=== PATIENT | male | born 2005 | race Caucasian/White ===

== ENCOUNTER 2023-06-19 12:49 | Observation (INO) ==
[2023-06-19] MEDS: SODIUM CHLORIDE 0.9% 1,000 ML IV SCH (13:35)
[2023-06-19] MEDS: ONDANSETRON INJ 2 MG/ML 2 ML VIAL IV STA ×2 (13:35→16:12)
[2023-06-19 13:47] LABS: Appearance Urine Clear (Clear); Bacteria Urine Automated None Seen (None Seen); Bilirubin Urine Negative (Negative); Blood Urine Negative (Negative); Cast Urine Automated 0-2 /lpf (0-2); Color Urine Yellow; Epithelial Cell Urine Auto 0-2 /hpf (0-2); Glucose Urine UA Negative (Negative); Ketones Urine 2+ (Negative); Leukocyte Esterase Urine Negative (Negative); Nitrite Urine Negative (Negative); Protein Urine Trace (Negative); RBC Urine Automated 0-2 /hpf (0-2); Specific Gravity Urine 1.026 (1.000-1.030); Urobilinogen Urine Negative (Negative); WBC Urine Automated 0-5 /hpf (0-5); pH Urine 8.5 (4.5-7.5)
[2023-06-19 14:02] LABS: Basophils # (auto) 0.03 K/uL (0.00-0.20); Basophils % (auto) 0.2 %; Eosinophils # (auto) 0.02 K/uL (0.00-0.50); Eosinophils % (auto) 0.2 %; Hematocrit (blood only) 45.3 % (42.0-52.0); Hemoglobin 16.3 g/dl (14.0-18.0); Immature Granulocytes # (auto) 0.04 K/uL (0.01-0.20); Immature Granulocytes % (auto) 0.3 %; Lymphocytes # (auto) 1.57 K/uL (1.20-3.40); Lymphocytes % (auto) 12.5 %; Mean Corpuscular Hemoglobin 30.2 pg (25.0-34.0); Mean Corpuscular Volume 83.9 fL (80.0-100.0); Mean Platelet Volume 9.9 fL (9.4-12.4); Monocytes # (auto) 0.33 K/uL (0.11-0.59); Monocytes % (auto) 2.6 %; Neutrophils # (auto) 10.54 K/uL (1.40-6.50); Neutrophils % (auto) 84.2 %; Platelet Count 329 K/uL (130-400); RDW Coefficient of Variation 13.3 % (11.5-14.5); RDW Standard Deviation 40.9 fL (36.4-46.3); White Blood Count 12.53 K/ul (4.8-10.8)
[2023-06-19 14:02] LABS: Amphetamines+Metham, Urine Neg (Neg); Barbiturates, Urine Neg (Neg); Benzodiazepine, Urine Neg (Neg); Cocaine, Urine Neg (Neg); MDMA (Ecstacy), Urine Neg (Neg); Marijuana, Urine Pos (Neg); Methadone, Urine Neg (Neg); Opiate, Urine Neg (Neg); Phencyclidine, Urine Neg (Neg)
[2023-06-19 14:08] LABS: Albumin Globulin Ratio 1.7 (0.9-2); Calcium 9.8 mg/dl (8.6-10.3); Creatinine Clr Calc Pharmacy 130.4 ml/min; Est GFR (African American) 113.9 ml/min; Est GFR (Non-African American) 98.3 ml/min; Globulin 2.9 gm/dl (2.5-4.0); Potassium 3.8 mmol/L (3.5-5.1); Total Protein 7.9 gm/dl (6.0-8.3)
--- NOTE | 2023-06-19 14:26 | Emergency Department Note ---
Impression & Plan Acute nausea with nonbilious vomiting, Leukocytosis, Acute dehydration, Cyclical vomiting syndrome ED Provider Note NAME: SHAGUFTA MARES AGE: 18 SEX: Male INFORMANT: Patient ED PROVIDER(S): Mario Butler MD CHIEF COMPLAINT: Vomiting PLAN: Disposition: Outpatient prescription management: none Referral: MEDICAL DECISION MAKING: Patient presented with a history of cyclic vomiting syndrome. He states this feels similar and has had this for upwards of 18 years. IV was established. He was hydrated with 2 L of normal saline. He was given IV Zofran. Patient was then given a dose of IV Phenergan.He has a mild leukocytosis on CBC. Patient was reassessed and had some additional vomiting. He was given another dose of IV Zofran. He was monitored. Patient then feeling somewhat better but then had additional vomiting. He was given a dose of IV Benadryl, IV Compazine, and IV Pepcid. This seemed to work well as he was much more relaxed, the nausea subsided and he was able to sleep. Discussed this with the father. We will monitor him for another 30 to 45 minutes and then reassess his ability to tolerate p.o. If he is unable to do so he will require admission to the hospital. I gave my usual and customary discussion regarding this issue. Care/management discussed with: none Triage Nursing notes: reviewed and agree them. Vital Signs: reviewed and remarkable for no significant abnormalities Additional History obtained from: Patient's father. He notes that the patient is followed at [facility]. He has had problems such as this on a frequent basis dating back to the age of 1 Chronic Medical/Social Conditions affecting care: Cyclic vomiting syndrome Prior/ Outside/ External records reviewed: none Differential Diagnosis: Etiologies such as acute exacerbation of cyclic vomiting syndrome, gastroenteritis, food borne illness, infections, appendicitis, diverticulitis, inflammatory bowel disease, GI bleed, biliary pathology, CHS, as well as others were entertained. Diagnostics, independently interpreted by me: ECG: none Cardiac Monitoring: Cardiac monitoring ordered by me: The patient was placed on continuous cardiac monitoring and observed. It revealed a normal sinus rhythm at 74 beats per minute without ectopy or evidence of dysrhythmia. Medical decision rules: none Imaging studies: Deferred HPI: 18 year old Male arrives for evaluation of vomiting. This started yesterday and is persisting. The patient also notes the following associated symptoms, nausea and feeling dehydrated. The patient has found no relieving factors. Current pain is rated as 0/10. Patient has history of cyclic vomiting syndrome since age of 1. This feels just like his prior episodes. He had about 3 other episodes this year. Father is present and helps with history. Patient does note he drank about 4 beers yesterday but nothing excessive. Patient also denies any drug use. Pt denies LOC, headache, fevers, chills, diaphoresis, visual changes, neck pain, chest pain, breathing difficulties, abdominal pain, back pain, melena, hematochezia, urinary symptoms, numbness, weakness, lymphadenopathy, rash, or other complaints. . PAST MEDICAL HISTORY: See Below, cyclic vomiting syndrome PAST SURGICAL HISTORY: See Below, SOCIAL HISTORY: See Below, [employer] student GRETHEL MEDICATIONS: See Below ALLERGIES: See Below VITALS: See Below PHYSICAL EXAMINATION: GENERAL: Awake, alert, uncomfortable-appearing, in mild distress. Actively dry heaving. HENT: Normocephalic, atraumatic. Oropharynx unremarkable. EYES: Normal conjunctiva. Sclera non-icteric. NECK: Inspection normal. Non-tender. Supple. No nuchal rigidity. FROM. No masses. RESPIRATORY: Clear to auscultation. No wheezes. No rales. Normal respiratory effort. CARDIAC: Normal rate. Normal rhythm. No murmurs. No rubs. Extremities warm and well perfused. Pulses equal. No JVD. GI: Soft, non-distended. No tenderness to palpation. No rebound or guarding. No masses. RECTAL: Deferred. MUSCULOSKELETAL: Atraumatic. Chest examination reveals no tenderness. The back is symmetrical on inspection without obvious abnormality. There is no CVA tenderness to palpation. No joint edema. LOWER EXTREMITIES: Calves are equal size bilaterally and non-tender. No edema. No discoloration. NEURO: Normal sensorium. No sensory or motor deficits noted. SKIN: No rash or jaundice noted. PROCEDURES: none CRITICAL CARE: none OBSERVATION NOTE: none Past Med/Surg History Medical History Cyclic vomiting syndrome Surgical History Hx of tonsillectomy Social History Smoking Status: Never smoker Preferred Language: Burmese Feels Safe at Home: Yes Allergies Allergies Allergy/AdvReac Type Severity Reaction Status Date / Time No Known Allergies Allergy Verified 06/19/23 15:02 Home Meds Home Medications Medication Instructions Recorded Confirmed amitriptyline-chlordiazepoxide 0 tab PO HS 06/19/23 06/19/23 12.5 mg-5 mg tablet escitalopram oxalate 10 mg tablet 0 mg PO HS 06/19/23 06/19/23 (Lexapro) Results & Data (ED) Vital Signs Vital Signs - 24 hr 06/19/23 12:52 06/19/23 14:20 06/19/23 14:20 Temperature 36.9 C Temperature Source Temporal Artery Scan Pulse Rate 74 Pulse Rate [Apical] 65 Pulse Rhythm Regular Pulse Strength Normal Respiratory Rate 20 20 Respiratory Effort / Characteristics Non-Labored Non-Labored Respiratory Depth Normal Normal Respiratory Pattern Regular Blood Pressure 136/86 Blood Pressure [Right Arm] 142/70 H Blood Pressure Mean 102 Blood Pressure Mean [Right Arm] 94 Pulse Oximetry 100 100 100 Oxygen Delivery Method Room Air Room Air Room Air Sepsis Recent Fever Within 48 Hours No Sepsis New/Unexplained Change in Mental Status No Sepsis Action Taken by Nursing No Action Required 06/19/23 16:43 Temperature Temperature Source Pulse Rate 52 L Pulse Rate [Apical] Pulse Rhythm Pulse Strength Respiratory Rate 17 Respiratory Effort / Characteristics Respiratory Depth Respiratory Pattern Blood Pressure 146/88 H Blood Pressure [Right Arm] Blood Pressure Mean 107 Blood Pressure Mean [Right Arm] Pulse Oximetry 98 Oxygen Delivery Method Room Air Sepsis Recent Fever Within 48 Hours Sepsis New/Unexplained Change in Mental Status Sepsis Action Taken by Nursing Laboratory Data 06/19/23 13:22 06/19/23 13:22 Lab Results 06/19/23 06/19/23 Range/Units 13:22 13:30 WBC 12.53 H (4.8-10.8) K/ul RBC 5.40 (4.70-6.10) M/uL Hgb 16.3 (14.0-18.0) g/dl Hct 45.3 (42.0-52.0) % MCV 83.9 (80.0-100.0) fL MCH 30.2 (25.0-34.0) pg MCHC 36.0 (32.0-36.0) g/dL RDW Std Deviation 40.9 (36.4-46.3) fL RDW Coeff of Jaylan 13.3 (11.5-14.5) % Plt Count 329 (130-400) K/uL MPV 9.9 (9.4-12.4) fL Immature Gran % (Auto) 0.3 % Neut % (Auto) 84.2 % Lymph % (Auto) 12.5 % Coal % (Auto) 2.6 % Eos % (Auto) 0.2 % Baso % (Auto) 0.2 % Neut # (Auto) 10.54 H (1.40-6.50) K/uL Lymph # (Auto) 1.57 (1.20-3.40) K/uL Coal # (Auto) 0.33 (0.11-0.59) K/uL Eos # (Auto) 0.02 (0.00-0.50) K/uL Baso # (Auto) 0.03 (0.00-0.20) K/uL Immature Gran # (Auto) 0.04 (0.01-0.20) K/uL Sodium 138 (136-145) mmol/L Potassium 3.8 (3.5-5.1) mmol/L Chloride 106 (98-107) mmol/L Carbon Dioxide 21 (21-32) mmol/L Anion Gap 11 (3-11) BUN 14 (6-23) mg/dl Creatinine 1.08 (0.6-1.4) mg/dl Est Cr Clr Drug Dosing 130.4 ml/min Est GFR ( Amer) 113.9 ml/min Est GFR (Non-Af Amer) 98.3 ml/min BUN/Creatinine Ratio 13.0 (10-20) Glucose 140 H (70-99(Fasting)) mg/dl Calcium 9.8 (8.6-10.3) mg/dl Total Bilirubin 1.0 (0.2-1.0) mg/dl AST 33 (13-39) U/L ALT 20 (7-52) U/L Alkaline Phosphatase 83 (34-104) U/L Total Protein 7.9 (6.0-8.3) gm/dl Albumin 5.0 (3.4-5.0) gm/dl Globulin 2.9 (2.5-4.0) gm/dl Albumin/Globulin Ratio 1.7 (0.9-2) Lipase 14 (11-82) U/L Urine Color Yellow Urine Appearance Clear (Clear) Urine pH 8.5 H (4.5-7.5) Ur Specific [place] 1.026 (1.000-1.030) Urine Protein Trace H (Negative) Urine Glucose (UA) Negative (Negative) Urine Ketones 2+ H (Negative) Urine Blood Negative (Negative) Urine Nitrite Negative (Negative) Urine Bilirubin Negative (Negative) Urine Urobilinogen Negative (Negative) Ur Leukocyte Esterase Negative (Negative) Urine WBC (Auto) 0-5 (0-5) /hpf Urine RBC (Auto) 0-2 (0-2) /hpf U Hyaline Cast (Auto) 0-2 (0-2) /lpf U Epithel Cells (Auto) 0-2 (0-2) /hpf Urine Bacteria (Auto) None Seen (None Seen) Urine Opiates Screen Neg (Neg) Ur Methadone, Qual Neg (Neg) Urine Barbiturates Neg (Neg) Ur Phencyclidine (PCP) Neg (Neg) U Amphetamin/Meth Scrn Neg (Neg) MDMA (Ecstasy) Screen Neg (Neg) U Benzodiazepines Scrn Neg (Neg) Ur Cocaine Metabolite Neg (Neg) U Marijuana (THC) Screen Pos H (Neg) Administered Medications Sodium Chloride (Nss) 1,000 mls @ 999 mls/hr IV .Q1H1M ONE Stop: 06/19/23 18:05 Last Admin: 06/19/23 17:08 Dose: 999 mls/hr Documented By: LUKASZ Discontinued Medications Diphenhydramine HCl (Diphenhydramine 50 Mg/Ml Vial) 25 mg IV NOW STA Stop: 06/19/23 16:58 Last Admin: 06/19/23 17:04 Dose: 25 mg Documented By: LUKASZ Sodium Chloride (Nss) 1,000 mls @ 999 mls/hr IV .Q1H1M YOON Stop: 06/19/23 15:15 Last Infusion: 06/19/23 15:05 Dose: Infused Documented By: Admin: 06/19/23 14:10 Dose: 999 mls/hr Documented By: Infusion: 06/19/23 14:09 Dose: Infused Documented By: Admin: 06/19/23 13:35 Dose: 999 mls/hr Documented By: MIKE Promethazine HCl (Phenergan) 25 mg in 51 mls @ 204 mls/hr IV NOW STA Stop: 06/19/23 14:58 Last Infusion: 06/19/23 16:31 Dose: Infused Documented By: Admin: 06/19/23 15:03 Dose: 204 mls/hr Documented By: LUKASZ Prochlorperazine (Compazine) 1 mls @ 1 mls/min IV ONE ONE Stop: 06/19/23 16:58 Last Admin: 06/19/23 17:04 Dose: 1 mls/min Documented By: LUKASZ Famotidine (Pepcid 20mg Iv Push) 20 mg in 5 mls @ 2.5 mls/min IV NOW STA Stop: 06/19/23 16:59 Last Admin: 06/19/23 17:04 Dose: 2.5 mls/min Documented By: LUKASZ Ondansetron HCl (Ondansetron Inj 2 Mg/Ml 2 Ml Vial) 4 mg IV NOW STA Stop: 06/19/23 13:14 Last Admin: 06/19/23 13:35 Dose: 4 mg Documented By: MIKE Ondansetron HCl (Ondansetron Inj 2 Mg/Ml 2 Ml Vial) 4 mg IV NOW STA Stop: 06/19/23 16:03 Last Admin: 06/19/23 16:12 Dose: 4 mg Documented By: LUKASZ Discharge Plan Visit Data Chief Complaint: Vomiting Stated Complaint: VOMITING ED Provider: Mario Butler Discharge Problem: Acute nausea with nonbilious vomiting, Leukocytosis, Acute dehydration, Cyclical vomiting syndrome Patient Disposition: Home - Self-Care Discharge Instructions Activity Restrictions/Additional Instructions: VOMITING INSTRUCTIONS: DO NOT drive, drink alcohol, operate machinery, or perform dangerous activities today. You were given medications in the ER that can affect your ability to safely function or operate a vehicle. Zofran(odansetron) tablets 4mg: Take one and allow it to dissolve in your mouth every four to six hours as needed for nausea or vomiting. Acetaminophen(Tylenol) may be used for fever or pain. Use 1000mg every six hours as needed. Avoid using more than 3000mg in a 24 hour period. Rest and drink plenty of fluids as tolerated. Slow sips of water or sports drinks are recommended instead of large amounts all at once. Continue current medications. Once your stomach is settled start with a clear liquid diet (jello, soup broth, etc.) and then advance as tolerated. You should avoid full, heavy meals for about 24 hrs from the time your symptoms resolved. Return to the ER for persistent vomiting, fevers, abdominal pain, chest pains, difficulty breathing, black or bloody stools, worsening of your condition, or as needed. Follow up with your primary physician when you return home for a recheck of your current condition Forms Stand Alone Forms: [facility], Important Visit Information Prescriptions Prescriptions: No Action amitriptyline-chlordiazepoxide 12.5-5 mg Tablet 0 tab PO HS Rx Instructions: PT UNSURE OF STRENGTH, UNABLE TO VERIFY. escitalopram oxalate [Lexapro] 10 mg Tablet 0 mg PO HS Rx Instructions: PT UNSURE OF STRENGTH, UNABLE TO VERIFY. Referrals Referrals: [facility] [Primary Care Provider] -
[2023-06-19] MEDS: PROMETHAZINE 25 MG/51 ML BAG IV STA (15:03)
[2023-06-19] MEDS: FAMOTIDINE 20MG IV PUSH 20 MG/5 ML SYR IV STA (17:04)
[2023-06-19] MEDS: diphenhydrAMINE 50 MG/ML VIAL IV STA ×2 (17:04→20:09)
[2023-06-19] MEDS: PROCHLORPERAZINE 1 ML IV ONE (17:04)
[2023-06-19] MEDS: SODIUM CHLORIDE 0.9% 1,000 ML IV ONE (17:08)
--- NOTE | 2023-06-19 19:29 | Emergency Department Note ---
ED Visit Note The patient was taken in signout from Dr. Butler at the change of shift. Please see that note for details. The patient was pending reassessment after receiving multiple medications for cyclic vomiting syndrome. The patient had been just dosed with additional medications and was able to rest and go to sleep. He was to be reassessed an hour to see if he can tolerate oral intake. Unfortunately, I was informed by RN that he vomited subsequently. Per signout patient was to be admitted if continues to fail p.o. trial. I did reevaluate the patient and his abdomen was benign. The patient and his father at bedside agree with plan for admission. Additional medications including topical capsaicin, diphenhydramine and Reglan as well as maintenance IV fluids with lactated Ringers. Case was discussed with Dr. Carter, [facility] hospitalist, who will evaluate the patient for admission. .
[2023-06-19] MEDS: LACTATED RINGER'S 1,000 ML IV SCH (20:08)
[2023-06-19] MEDS: METOCLOPRAMIDE HCL INJ 5 MG/ML 2 ML VIAL IV ONE (20:08)
[2023-06-19] MEDS: CAPSAICIN CR 0.075% 60 GM TUBE EXT STA (20:12)
--- NOTE | 2023-06-19 20:45 | History & Physical Report ---
Date of Service June 19, 2023 Assessment & Plan (1) Cyclical vomiting syndrome: Plan: - History of cyclic vomiting syndrome- follows with [facility] GI - multiple admissions in the past - marijuana + on UDS, denies use in the past week - Zofran prn, Phenergan prn as pt states this is what has worked well for him in the past - could consider Decadron prior to Zofran if unable to break nausea cylce; pt declines that this time - S/p 3L IVF in the ED; continue LR @125ml/hr until PO intake improves - Diet- clears; advance as tolerated - On amitriptyline chlordiazepoxide and Lexapro- unable to tolerate PO currently, unsure of home dosing- f/u qAM to obtain home dosing - Will put order to obtain Mario Eliseo's records (2) Acute dehydration: Plan: - IVF as per above (3) Leukocytosis: Plan: - mild leukocytosis to 12; no signs of infection- afebrile and hemodynamically stable - likely reactive; continue to trend Plan Code: Full Diet: Clears; advance as tolerated VTE Prophylaxis: Ambulation, SCD, low risk History of Present Illness Primary Care Provider: [facility] 18 year old male with a past medical history of cyclic vomiting syndrome presenting with nausea, vomiting, dehydration. States that he has had cyclic vomiting syndrome since he was 1. Multiple episodes per month. Has not had an episode this bad in a number of years. From [place], follows with GI at [facility]. 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 Denies any other substance use. States that nausea/vomiting began last night and got worse thorough out the day today. Denies abdominal pain. Last BM this morning; denies diarrhea,. constipation, blood in stool. Emesis non- bloody/nonbilious. Poor PO intake through out the day today. Normally when he has episodes, Phenergan/Zofran work well for him. In the ED got multiple rounds of Phenergan, Zofran. Also trial of famotidine, Benadryl, Reglan. S/p 2L NSS. Allergies Allergy/AdvReac Type Severity Reaction Status Date / Time No Known Allergies Allergy Verified 06/19/23 15:02 Home Medications Medication Instructions Recorded Confirmed Type amitriptyline-chlordiazepoxide 0 tab PO HS 06/19/23 06/19/23 History 12.5 mg-5 mg tablet escitalopram oxalate 10 mg tablet 0 mg PO HS 06/19/23 06/19/23 History (Lexapro) Past Med/Surg History Medical History Cyclic vomiting syndrome Surgical History Hx of tonsillectomy Social History Smoking Status: Never smoker Hx Alcohol Use: Yes Alcohol type: beer Preferred Language: Nepali Communication Ability: Effective Spout Liner Helper Required: No Beliefs That Will Affect Care: None Current Living Situation: Other Current Living Situation Comment: college roommate Feels Safe at Home: Yes Safety Concerns: Feels Safe At This Time Assistive Devices: None Review of Systems Review of Systems: As per above Physical Exam Physical Exam: Constitutional: well-appearing, no acute distress HEENT: NCAT, no conjunctival injection CV: regular rhythm, no murmur appreciated, extremities well-perfused, no LE edema Resp: CTABL, no wheezes/rales/rhonchi appreciated, no increased work of breathing GI: soft, nondistended, nontender, BS normoactive MSK: no gross deformities appreciated Skin: warm, dry, no rash appreciated Neuro: alert, oriented, no focal neurologic deficit appreciated Results & Data Results & Data Vital Signs (Past 12 Hours) Vital Signs Temp Pulse Pulse Resp BP BP Pulse Ox 06/19/23 20:15 61 17 146/71 H 99 06/19/23 19:31 54 L 17 142/70 H 95 06/19/23 16:43 52 L 17 146/88 H 98 06/19/23 14:20 100 06/19/23 14:20 65 20 142/70 H 100 06/19/23 12:52 36.9 C 74 20 136/86 100 O2 Del Method 06/19/23 20:15 Room Air 06/19/23 19:31 Room Air 06/19/23 16:43 Room Air 06/19/23 14:20 Room Air 06/19/23 14:20 Room Air 06/19/23 12:52 Room Air Supervising Physician Co-Signing Physician Notes Attending addendum: I have physically seen this patient, have supervised the medical residents activities, and agree with the H&P unless as otherwise noted. Assessment and Plan: Cyclic vomiting syndrome/cannabinol hyperemesis syndrome- Follows with [facility] GI UDS positive for marijuana, encouraged cessation Patient received multiple medications from the ED with little improvement symptoms Will continue Zofran and Phenergan as needed, as patient reports these medications worked best for him Status post 3 L IV fluid from the ED Maintenance LR at 125 MLS per hour x 1 additional liter Temporarily holding amitriptyline, chlordiazepoxide and Lexapro due to inability to tolerate p.o. Resident Activity Tracking Resident Involvement: Resident Care Provided Care Provided: Adult Hospital Medicine
[2023-06-19] MEDS ORDERED: ONDANSETRON INJ 2 MG/ML 2 ML VIAL IV PRN (21:52)
[2023-06-19] MEDS ORDERED: PROMETHAZINE HCL 25 MG/20 ML UDP PO PRN (21:52)
[2023-06-20] MEDS: PROMETHAZINE HCL 12.5 MG in SODIUM CHLORIDE 0.9% 50 ML IV PRN (02:00)
--- NOTE | 2023-06-20 06:36 | Billing Data ---
Date of Service June 20, 2023 Coding Level of Care Code 97524 INT INP/OBS CARE
[2023-06-20 07:15] LABS: Basophils # (auto) 0.02 K/uL (0.00-0.20); Basophils % (auto) 0.2 %; Hematocrit (blood only) 40.5 % (42.0-52.0); Hemoglobin 13.8 g/dl (14.0-18.0); Immature Granulocytes # (auto) 0.04 K/uL (0.01-0.20); Immature Granulocytes % (auto) 0.3 %; Lymphocytes # (auto) 1.42 K/uL (1.20-3.40); Lymphocytes % (auto) 12.4 %; Mean Corpuscular Hemoglobin 29.2 pg (25.0-34.0); Mean Corpuscular Hgb Conc 34.1 g/dL (32.0-36.0); Mean Corpuscular Volume 85.6 fL (80.0-100.0); Monocytes # (auto) 0.61 K/uL (0.11-0.59); Monocytes % (auto) 5.3 %; Neutrophils # (auto) 9.38 K/uL (1.40-6.50); Neutrophils % (auto) 81.8 %; Platelet Count 270 K/uL (130-400); RDW Coefficient of Variation 13.3 % (11.5-14.5); RDW Standard Deviation 41.7 fL (36.4-46.3); Red Blood Count 4.73 M/uL (4.70-6.10); White Blood Count 11.47 K/ul (4.8-10.8)
[2023-06-20 07:45] LABS: Alanine Aminotransferase 16 U/L (7-52); Albumin Globulin Ratio 1.6 (0.9-2); Albumin Level 4.2 gm/dl (3.4-5.0); Alkaline Phosphatase 67 U/L (34-104); Anion Gap 8 (3-11); BUN Creatinine Ratio 12.4 (10-20); Bilirubin,Total 0.8 mg/dl (0.2-1.0); Blood Urea Nitrogen 11 mg/dl (6-23); Calcium 8.3 mg/dl (8.6-10.3); Carbon Dioxide 24 mmol/L (21-32); Chloride 105 mmol/L (98-107); Creatinine Clr Calc Pharmacy 158.2 ml/min; Est GFR (African American) 142.7 ml/min; Est GFR (Non-African American) 123.1 ml/min; Globulin 2.6 gm/dl (2.5-4.0); Glucose 101 mg/dl (70-99(Fasting)); Magnesium 1.9 mg/dl (1.7-2.4); Sodium 137 mmol/L (136-145); Total Protein 6.8 gm/dl (6.0-8.3)
--- NOTE | 2023-06-20 08:15 | Discharge Summary ---
Date of Service June 20, 2023 Admission HPI Per Admitting Provider 18 year old male with a past medical history of cyclic vomiting syndrome presenting with nausea, vomiting, dehydration. States that he has had cyclic vomiting syndrome since he was 1. Multiple episodes per month. Has not had an episode this bad in a number of years. From [place], follows with GI at [facility]. Was at his [employer] formal last night, states that he had 2 beers. Denies any other substance use. States that nausea/vomiting began last night and got worse thorough out the day today. Denies abdominal pain. Last BM this morning; denies diarrhea,. constipation, blood in stool. Emesis non-bloody/non bilious. Poor PO intake through out the day today. Normally when he has episodes, Phenergan/Zofran work well for him. In the ED got multiple rounds of Phenergan, Zofran. Also trial of famotidine, Be nadryl, Reglan. S/p 2L NSS. Admission Exam Per Admitting Provider Constitutional: well-appearing, no acute distress HEENT: NCAT, no conjunctival injection CV: regular rhythm, no murmur appreciated, extremities well-perfused, no LE edema Resp: CTABL, no wheezes/rales/rhonchi appreciated, no increased work of breathing GI: soft, nondistended, nontender, BS normoactive MSK: no gross deformities appreciated Skin: warm, dry, no rash appreciated Neuro: alert, oriented, no focal neurologic deficit appreciated Principal Diagnosis Cyclical vomiting syndrome Discharge Exam Constitutional: well-appearing, no acute distress HEENT: NCAT, no conjunctival injection, moist mucous membranes CV: regular rhythm, no murmur appreciated, extremities well-perfused Resp: CTABL, no wheezes/rales/rhonchi appreciated, no increased work of breathing GI: soft, nondistended, nontender Skin: warm, dry, no rash appreciated Neuro: alert, oriented Discharge Data Allergies Allergy/AdvReac Type Severity Reaction Status Date / Time No Known Allergies Allergy Verified 06/19/23 15:02 Consultations 06/19/23 19:30 ED Decision to Admit Stat Hospital Course (1) Cyclical vomiting syndrome: - History of cyclic vomiting syndrome- follows with [facility] GI - Multiple admissions in the past - UDS is THC+, though denies use in the past week leading to admission (latest use was on 06/11) - Pt's nausea/vomiting resolved with Zofran IV + Phenergan IV, IVF repletion - Vomiting episode likely triggered by dehydration + THC use - Tolerating clear liquids well by time of discharge (2) Acute dehydration: - IVF as per above - Resolved by time of discharge (3) Leukocytosis: - Mild leukocytosis to 12; no signs of infection- afebrile and hemodynamically stable - Likely reactive/mild hemoconcentration Total Time Total Time Spent Total Time Spent (In Minutes): <30 Discharge Plan Discharge Items Patient Disposition: Home - Self-Care Reason For Visit: CYCLIC VOMITTING SYNDROME Discharge Diagnosis: Cyclic vomiting syndrome Activity: Resume your previous activity Non-emergency contact: Primary Care Provider Call non-emergency contact if: your symptoms worsen Follow-up/Referrals: [facility] [Primary Care Provider] - Diet: Regular Addtl Attending Provider Instructions: You were admitted to the hospital for an episode of cyclical vomiting syndrome. You were treated with IV fluids and IV nausea medications. This episode was likely triggered by dehydration and possibly contribution from previous marijuana use. A discharge summary will be sent to your primary care physician to ensure continuity of care. Please bring this discharge summary with you to your next office appointment so that your provider can review it at that time. Follow-up appointments: - Make a follow-up appointment with your PCP within the next week. It is very important that you follow up with them shortly after discharge from the hospital. Medications: Your medication list has been reviewed and reconciled upon discharge to ensure accuracy and continuity of care. An updated list of all your medications is included with your hospital discharge paperwork. Please review this list closely, and make note of any changes. Take your medications as instructed; do not skip a dose of your medicines. Make sure all of your doctors know every medicine you are taking (including [id number] medicines, vitamins, and supplements). Call your primary care provider before taking any new medicines (including amam-vjp-vejfsvx medicines, vitamins, and supplements), because some of these may interact with your current medications, or may make your symptoms worse. Tell your primary care provider if you cannot afford your medications. CALL 911 OR GO TO THE EMERGENCY DEPARTMENT if you experience any of the following: - Sudden, severe abdominal pain or nausea/vomiting - Severe chest pain, or chest pain that radiates (moves) to your jaw or arm - Sudden, severe shortness of breath or difficulty breathing Thank you for allowing us to participate in your care Pending Studies at Discharge: No Stand-Alone Forms: My [facility] Medications and DC Order Prescriptions: Continued amitriptyline-chlordiazepoxide 12.5-5 mg Tablet 0 tab PO HS Rx Instructions: PT UNSURE OF STRENGTH, UNABLE TO VERIFY. escitalopram oxalate [Lexapro] 10 mg Tablet 0 mg PO HS Rx Instructions: PT UNSURE OF STRENGTH, UNABLE TO VERIFY. Discharge Orders: Discharge Order (Routine); Ordered 06/20/23 Ordered By: Denis Coughlin/Other Patient Handouts: Cyclic Vomiting Admission Data Admit Date/Time: 06/19/23 20:17 Attending Provider: Uche Pavon Admit Provider: Leah Garcia Primary Care Provider: [facility] Other Providers: Milad Carter Other Interventions: Discharge Summary Assessment (RN) Last Done: 06/20/23 09:09 Supervising Physician Co-Signing Physician Notes I personally examined the patient and verified all echeverria points of history and exam, discussed case, and agree with decision making with Dr Rao Feeling better and would like to go home. Feels like he will do okay. Vitals noted, in general he is awake and alert pleasant no distress. HEENT normocephalic atraumatic mucous membranes moist. Breathing unlabored no accessory muscle use good effort. Skin shows no rashes no pallor or icterus. Intractable nausea and vomitingnow tractable. Seems to been a flareup of his cyclic vomiting syndrome. Safe/stable for home. Outpatient follow-up. Otherwise as above.
[2023-06-20 08:40] LABS: Potassium 3.9 mmol/L (3.5-5.1)
--- NOTE | 2023-06-20 17:14 | Billing Data ---
Date of Service June 20, 2023 Coding Level of Care Code 99255 IN/OBS DISCH 30 MIN/LESS
[2023-06-23 13:54] LABS: Marijuana Quant, GCMS Urine 4020 ng/mL (<5)
== END 2023-06-20 09:53 | disposition home or self-care (01) ==
LOC: ED 12:49 → 3E 12:49 → SUATTDRO 20:17 → 3E 20:56